=== PATIENT | male | born 1980 ===

== ENCOUNTER 2021-06-28 18:12 | Emergency (ER) | payer MEDICAID, OTHER ==
[~2021-06-28] VITALS: Ht 188 cm; Wt 128.8 kg
[2021-06-28] MEDS ORDERED: PIPERACILLIN-TAZO 4.5GM 100 ML IV ONE (20:30)
[2021-06-28] MEDS ORDERED: VANCOMYCIN 1,500 MG in D5W 5% 250 ML IV ONE (20:30)
[2021-06-28 22:30] LABS: Basophils # (auto) 0 10 ^3/uL (0-0.2); Basophils % (auto) 0.2 % (0.0-2.0); Eosinophils # (auto) 0.1 10 ^3/uL (0-0.8); Eosinophils % (auto) 0.7 % (0.0-7.0); Hematocrit 40.8 % (41.0-53.0); Hemoglobin 13.6 g/dL (13.5-17.5); Lymphocytes # (auto) 1.3 10 ^3/uL (0.4-5.4); Lymphocytes % (auto) 7.2 % (10.0-50.0); Mean Corpuscular Hemoglobin 29.3 pg (28.0-32.0); Mean Corpuscular Hgb Conc. 33.3 g/dL (32.0-36.0); Mean Corpuscular Volume 87.9 fL (80.0-100.0); Monocytes # (auto) 1.9 10 ^3/uL (0-1.3); Monocytes % (auto) 11.1 % (0.0-12.0); Neutrophils % (auto) 80.8 % (37.0-80.0); Red Blood Cells 4.65 10^6/uL (4.5-5.90); White Blood Cell 17.4 10^3/uL (4.4-10.8)
[2021-06-28 22:44] LABS: Albumin 3.1 g/dL (3.4-5.0); BUN/Creatinine Ratio 18.2
[2021-06-28 22:47] LABS: Bilirubin, Total 0.8 mg/dL (0.2-1.0)
[2021-06-29] MEDS ORDERED: ONDANSETRON HCL 4 MG/2 ML VIAL IV ONE (05:45)
[2021-06-29 09:23] VITALS: BP 133/87
== END 2021-06-29 09:28 | disposition left against medical advice (07) ==
LOC: ER 18:12
DX: E11.621 Type 2 diabetes mellitus with foot ulcer (principal); L97.416 Non-pressure chronic ulcer of right heel and midfoot with bone involvement without evidence of necrosis; M72.2 Plantar fascial fibromatosis; E11.9 Type 2 diabetes mellitus without complications; I10 Essential (primary) hypertension
CPT/HCPCS: 36415; 73700; 80053; 83605; 85025; 87040; 96365; 96366; 96367; 96375; 99285; J2405; J2543; J3370; J7060